=== PATIENT | female | born 1980 | race Hispanic/Latino ===

== ENCOUNTER 2020-09-27 01:15 | Inpatient (IN) | payer SELFPAY ==
[2020-09-27] MEDS ORDERED: Morphine 4 MG/ML VIAL ONE (01:42)
[2020-09-27] MEDS ORDERED: Ondansetron PF 4 MG/2 ML Vial ONE ×2 (01:43→10:01)
[2020-09-27 01:47] LABS: #Basophils 0.1 thou/uL (0.0-0.2); #Eosinphils 0.1 thou/uL (0.0-0.7); #Monocytes 0.8 thou/uL (0.11-0.59); #Neutrophils 8.5 thou/uL (1.40-6.50); %Basophils 0.7 % (0.0-1.0); %Eosinophils 1.2 % (0.0-10.0); %Lymphocytes 17.5 % (21.0-51.0); %Monocytes 6.7 % (0.0-10.0); Hemoglobin 12.1 g/dL (12.0-16.0); Mean Corpuscular HGB CONC 33.2 g/dL (32.0-36.0); Mean Corpuscular Hemoglobin 29.3 pg (27.0-31.0); Mean Corpuscular Volume 88.3 fL (78.0-98.0); Mean Platelet Volume 7.1 fL (7.4-10.4); Platelet Count 377 thou/uL (130-400); RBC Distribution Width 12.9 % (11.5-14.5); Red Blood Cell (RBC) Count 4.14 mill/uL (4.20-5.40); White Blood Cell (WBC) Count 11.5 thou/uL (4.8-10.8)
[2020-09-27 02:07] LABS: ALT (SGPT) 16 U/L (8-55); AST (SGOT) 22 U/L (5-34); Alkaline Phosphatase 68 U/L (40-110); Anion Gap 16 mmol/L (10-20); BUN (Urea Nitrogen) 14 mg/dL (7.0-18.7); Bilirubin, Total 0.5 mg/dL (0.2-1.2); Calc. Creatinine Clearance 0 mL/min (70-130); Calcium 8.8 mg/dL (7.8-10.44); Carbon Dioxide 18 mmol/L (22-29); Chloride 105 mmol/L (98-107); Estimated GFR-MDRD 74; Globulin 3.6 g/dL (2.4-3.5); Glucose 113 mg/dL (70-105); Lipase 21 U/L (8-78); Potassium 3.9 mmol/L (3.5-5.1); Protein, Total 7.6 g/dL (6.0-8.3); Sodium 135 mmol/L (136-145)
[2020-09-27 02:12] LABS: Pregnancy Test - Urine (BHCG) Negative (Negative)
[2020-09-27 02:15] LABS: Bacteria/HPF None Seen HPF (None Seen); Bilirubin Negative (Negative); Blood, Urine Negative (Negative); Clarity Clear (Clear); Glucose, Urine (Dipstick) Normal (Negative); Ketone, Urine Negative (Negative); Leukocyte 75 Leu/uL (Negative); Nitrite Negative (Negative); Pregu Control Background? CLEAR/WHITE (CLR/WHITE); Pregu Control Bar Appear? YES (CONTROL BAR); Protein, Urine (Dipstick) Negative (Neg-Trace); RBC/HPF 0-3 HPF (0-3); Specific Gravity 1.017 (1.002-1.036); Specific Gravity, Urine 1.017 (1.002-1.036); Urobilinogen Normal mg/dL (Less than 2); WBC/HPF 0-3 HPF (0-3); pH, Urine 8.5 (5.0-9.0)
[2020-09-27] MEDS ORDERED: Piperacillin/Tazobactam 4.5 GM VIAL ONE (03:07)
[2020-09-27] MEDS ORDERED: Morphine 4 MG/ML VIAL SLOW IVP PRN (05:53)
[2020-09-27 05:54] VITALS: BMI 33.3
[2020-09-27] MEDS ORDERED: Ondansetron ODT 4 MG TAB SL PRN (06:00)
[2020-09-27] MEDS ORDERED: Ondansetron PF 4 MG/2 ML Vial IVP PRN (06:00)
[2020-09-27 07:20] LABS: SARS-CoV-2 NAA Rapid Test Not Detected (NotDetected)
--- NOTE | 2020-09-27 08:06 | ULT ---
PRELIMINARY REPORT/[facility]/EMERGENCY AFTER HOURS PROCEDURE: Receipt of this report by the clinical staff was confirmed with JON MATHIS MD by Kelly Sanchez on Sep 27, 2020 02:35:00 CRYSTAL CUTTER. Addendum electronically signed by Noreen Sanchez on September 27, 2020 2:34:58 AM CRYSTAL CUTTER EXAM: US Abdomen Limited, Right Upper Quadrant. CLINICAL HISTORY: RUQ pain TECHNIQUE: Real-time ultrasound of the right upper quadrant with image documentation. COMPARISON: None provided. FINDINGS: LIVER: Measures 15 cm and demonstrates fatty infiltration. GALLBLADDER: Cholelithiasis is noted with gallbladder sludge and wall thickening is seen at 4.1 mm. The patient d emonstrated a positive sonographic Jimenez's sign and pericholecystic fluid is noted. COMMON BILE DUCT: Your prominent at 6.9 mm. PANCREAS: Mostly obscured by overlying bowel gas. RIGHT KIDNEY: Unremarkable. No hydronephrosis. Measures 9.6 cm IMPRESSION: The findings are consistent with acute cholecystitis ELECTRONICALLY SIGNED BY: Codey Vernon MD Sep 27, 2020 2:32:23 AM CRYSTAL CUTTER This report is intended for review by the ordering physician only, in accordance of law. If you recei ve this report in error, please call [facility] at [phone]. FINAL REPORT EMERGENT AFTER HOURS RIGHT UPPER QUADRANT ABDOMINAL ULTRASOUND: FINDINGS/IMPRESSION: I agree with the findings and impression given in the preliminary report per [facility] physici an. 1. There are gallstones and gallbladder wall thickening. A positive Jimenez's sign was reported by erica gregg technologist. These findings may be consistent with acute cholecystitis. Correlate with physical exam and LFTs. 2. Common bile duct is upper normal of normal in size. POS: EAA
[2020-09-27] MEDS: Sodium Chloride 0.9% 1,000 ML IV SCH ×2 (08:24→16:47)
[2020-09-27] MEDS ORDERED: FLU VACC QS2020-21(6MOS UP)/PF 60 MCG/0.5 ML SYRINGE IM ONE (09:00)
[2020-09-27] MEDS ORDERED: Piperacillin/Tazobactam 4.5 GM in Sodium Chloride 0.9% 100 ML IVPB SCH (09:00)
[2020-09-27] MEDS ORDERED: Bupivacaine 0.25% HCL 30 ML VIAL ONE (09:41)
[2020-09-27] MEDS ORDERED: Lidocaine 1% w/Epinephrine 1:100K 20 ML VIAL ONE (09:41)
[2020-09-27] MEDS ORDERED: Iothalamate Meglumine 60% 50 ML VIAL FS ONE (09:41)
[2020-09-27] MEDS ORDERED: Lidocaine 1% PF 5 ML VIAL ONE (10:01)
[2020-09-27] MEDS ORDERED: Rocuronium Bromide 10 MG/ML (10ML VIAL) ONE (10:01)
[2020-09-27] MEDS ORDERED: Ketorolac Tromethamine 30 MG/ML VIAL ONE (10:01)
[2020-09-27] MEDS ORDERED: PROPOFOL 200 MG/20 ML VIAL ONE (10:01)
[2020-09-27] MEDS ORDERED: Dexamethasone 20 MG/5 ML VIAL ONE (10:01)
[2020-09-27] MEDS ORDERED: Glycopyrrolate 0.2 MG/ML 5 ML SYRINGE ONE (10:01)
[2020-09-27] MEDS ORDERED: Fentanyl 100 MCG/2 ML VIAL ONE (10:32)
--- NOTE | 2020-09-27 10:38 | HP ---
CHIEF COMPLAINT: Right upper quadrant pain. HISTORY OF PRESENT ILLNESS: Ms. Kristopher Prince is a 39-year-old previously healthy woman who presented to the emergency room with a several-hour history of severe right upper quadrant pain, nausea, and vomiting. She states that she has had intermittent right upper quadrant pain after eating for the past 4 years, but has never been this severe. She was unable to control the pain at home, so she came to the emergency room. She denies any fevers, chills, jaundice, or icterus. No exacerbating or alleviating factors. She did not eat anything unusual before onset of the pain. She describes it as sharp and confined to the right upper quadrant. PAST MEDICAL HISTORY: None. PAST SURGICAL HISTORY: None. OUTPATIENT MEDICATIONS: None. ALLERGIES: NONE. FAMILY HISTORY: Hypertension in her father. REVIEW OF SYSTEMS: Ten-system review of systems is negative except per HPI. PHYSICAL EXAMINATION: VITAL SIGNS: The patient has been afebrile in the emergency room and since her admission, heart rate 76, respirations 18, 98% saturated on room air, and blood pressure 99/63. GENERAL: A healthy-appearing young woman, in no acute distress. No jaundice or icterus. Not flushed or toxic in appearance. HEENT: Unremarkable. Neck is supple without lymphadenopathy or thyroid nodules. Pupils are equal. Extraocular movements are intact. HEART: Regular in its rate and rhythm without murmurs, rubs, or gallops. LUNGS: Clear to auscultation bilaterally. She is able to take a deep breath without pain. ABDOMEN: Soft and nondistended without palpable masses or hernias. She has focal tenderness to palpation in the right upper quadrant, but otherwise nontender to palpation. She states that the pain is better since last night. EXTREMITIES: Warm and well perfused without edema. NEUROLOGIC: No focal deficits. PSYCHIATRIC: Alert, oriented, and conversing appropriately using a [place]oese aerial photograph interpreter. LABORATORY DATA: White count is elevated at 11.5 with a neutrophil differential in the high normal. Electrolytes are unremarkable. Bicarb is a little low at 18, sodium is a little low at 135, glucose is slightly elevated at 113. LFTs are normal and lipase is normal. Urine is contaminated with 7 to 10 squamous epithelial cells, but is otherwise unremarkable. COVID serology is negative. Ultrasound of the abdomen shows gallstones in the gallbladder with gallbladder wall thickening and pericholecystic fluid, consistent with acute cholecystitis. Her common bile duct is prominent for her age. ASSESSMENT: Cholelithiasis and cholecystitis, acute on chronic, possible choledocholithiasis given prominent common bile duct, but somewhat less likely given normal liver function tests. I recommended laparoscopic cholecystectomy with intraoperative cholangiogram. Inherent risks of the surgery were discussed with the patient. These include, but are not limited to, bleeding, infection, risks of anesthesia, damage to nearby structures including bowel, liver, and bile duct, need for other procedures such as ERCP, and need for open surgery. She understands and accepts these risks and wishes to proceed. All of her questions were answered. She is on scheduled Zosyn since her admission to the hospital. Job ID: [id number]
[2020-09-27] MEDS ORDERED: Morphine Sulfate 2 MG/ML SYRINGE SLOW IVP PRN (11:05)
[2020-09-27] MEDS ORDERED: Ondansetron HCl/PF 4 MG/2 ML Vial IVP PRN (11:05)
[2020-09-27] MEDS ORDERED: Meperidine HCl/PF 25 MG/ML VIAL SLOW IVP PRN (11:05)
[2020-09-27] MEDS ORDERED: Ketorolac Tromethamine 30 MG/ML VIAL IVP PRN (11:05)
[2020-09-27] MEDS ORDERED: Promethazine HCl 25 MG/ML VIAL IM PRN (11:05)
[2020-09-27] MEDS ORDERED: PACU-Morphine 4MG/ML VIAL SLOW IVP PRN (11:05)
[2020-09-27] MEDS ORDERED: Promethazine HCl 25 MG/ML VIAL SLOW IVP PRN (11:05)
[2020-09-27] MEDS ORDERED: HYDROmorphone 2 MG/ML VIAL SLOW IVP PRN (11:05)
[2020-09-27] MEDS ORDERED: HYDROmorphone 2 MG/ML VIAL ONE (11:40)
--- NOTE | 2020-09-27 13:40 | PDOC.OP ---
Operative Note - Operative Note Operative Note: DATE OF PROCEDURE: 09/27/2020 PROCEDURES: Laparoscopic cholecystectomy with intraoperative cholangiogram. SURGEON: Mariya Guerra M.D. PREOPERATIVE DIAGNOSIS: Cholelithiasis and cholecystitis with possible choledocholithiasis POSTOPERATIVE DIAGNOSIS: Cholelithiasis and cholecystitis FINDINGS: Very distended gallbladder with thick bile sludge and multiple stones. Large stone impacted in the neck with edema at the level of the neck of the gallbladder. Sludge in the cystic duct but no filling defects or obstruction to flow on cholangiogram. HISTORY: Patient with signs and symptoms of biliary colic. Laparoscopic cholecystectomy was recommended for symptomatic relief and prevention of future episodes. Intraoperative cholangiogram was also recommended. PROCEDURE: After informed consent was obtained and appropriate preoperative antibiotics were administered, the patient was taken to the operating room and placed in the supine position and general endotracheal anesthesia was administered. The stomach was decompressed with an OG tube and the abdomen was prepped and draped in standard sterile fashion. Local anesthesia was infused to the skin and subcutaneous tissues at the umbilical level. A transverse skin incision was made. The fascia was elevated and a Veress needle was placed into the abdominal cavity without difficulty. Opening pressure was less than 5 and carbon dioxide gas easily insufflated to an intra-abdominal pressure of 15, which the patient tolerated well. The Veress needle was withdrawn and a [place] port advanced under direct vision. The abdominal cavity was carefully examined. There was no evidence of Veress needle or of trocar injury. Local anesthesia was infused to the skin and subcutaneous tissues at the epigastric, right upper quadrant, and right lateral abdominal sites and trocars were placed under direct vision of the laparoscope. The fundus of the gallbladder was too taut to grasp. The gallbladder was aspirated with removal of about 20 mL of very thick mucousy bile following which the fundus was able to be grasped and retracted superiorly. Omental adhesions were taken down through the avascular plane. These adhesions appeared to be chronic. The infundibulum was exposed, grasped and retracted laterally. The serosa was stripped inferiorly at the level of the neck of the gallbladder exposing the cystic duct and artery which were traced clearly to their insertion in the gallbladder. These were dissected free circumferentially and the cystic duct was clipped at the level of the neck of the gallbladder. The cystic artery was clipped but not divided. An incision was made in the cystic duct inferior to the clip and the cystic duct was palpated with no stones palpable but some sludge extruded from the cystic duct following which there was flow of clear bile. A cholangiogram catheter was introduced and placed into the cystic duct and secured with a clip. A cholangiogram was obtained which showed an adequate length of cystic duct. There was normal filling of the common bile duct with free flow of contrast into the duodenum. There was normal retrograde flow into the common hepatic duct beyond the level of the bifurcation without filling defects. The cholangiogram catheter was removed and the cystic duct clipped below the incision in the cystic duct. The cystic duct was divided between these clips and the previously placed clip. The cystic artery was clipped and divided between the previously placed clips. A small branch of the cystic artery going to the posterior portion of the gallbladder was exposed after the cystic artery was divided. This was clipped and divided as well. The gallbladder was then dissected free of the gallbladder bed using hook electrocautery. Prior to complete removal of the gallbladder from the gallbladder bed, the area of the cystic duct and artery stumps was examined. The clips were in good position completely across these structures and there was no bleeding and no leakage of bile. The gallbladder was then placed into an EndoCatch bag and drawn out through the epigastric incision after crushing and removing multiple stones. The epigastric trocar was replaced and the operative site easily irrigated to clear. There was no significant bleeding or spillage of bile. The epigastric trocar was removed and the fascia closed under direct laparoscopic vision with a 0 Vicryl suture on a GraNee needle in a [id number] manner with excellent technical result. The right upper quadrant and right lateral abdominal trocars were removed and hemostasis verified. Carbon dioxide gas was allowed to desufflate through the umbilical trocar which was then removed. The skin incisions were closed with 4-0 subcuticular Monocryl sutures and Dermabond dressings were placed. The patient was extubated and taken to the recovery room in good condition. There were no complications. ESTIMATED BLOOD LOSS: Minimal. SPECIMEN : Gallbladder and contents.
[2020-09-27] MEDS ORDERED: traMADol HCl 50 MG TAB PO PRN ×2 (13:48→13:49)
[2020-09-27] MEDS ORDERED: HYDROcodone/Acetaminophen 5/325 mg Tablet PO PRN ×2 (13:49→13:50)
[2020-09-27] MEDS ORDERED: Acetaminophen 325 MG TAB PO PRN ×2 (13:50)
[2020-09-27] MEDS ORDERED: Ibuprofen 200 MG TAB PO PRN ×3 (13:51→13:52)
[2020-09-27] MEDS ORDERED: Promethazine 25 MG TAB PO PRN (13:52)
[2020-09-27] MEDS ORDERED: Morphine 2 MG/ML VIAL SLOW IVP PRN (13:53)
--- NOTE | 2020-09-27 14:29 | RAD ---
EXAM: INTRAOPERATIVE CHOLANGIOGRAM: 09/27/20 HISTORY: Right upper quadrant pain, gallstones. FINDINGS: Two portable fluoroscopic spot images are presented for interpretation. There is injection of contras t through the cystic duct. Common bile duct and common hepatic duct are upper range of normal size. T here is some slight narrowing of the distal common duct without evidence for retained calculus. Porti ons of the right and left intrahepatic ducts are not demonstrated. Minimal reflux into a nondilated p ancreatic duct. IMPRESSION: No evidence for overt intraductal calculus. Slight narrowing at the distal common duct/ampulla region . POS: RRE
[2020-09-27 16:45] VITALS: BP 127/70; TEMP 98
== END 2020-09-27 19:00 | disposition home or self-care (01) | DRG 419 ==
LOC: ERS 01:15 → SURG A 02:59
PROVIDERS: ADMIT Surgery; ATTEND Surgery
PROC: 0FT44ZZ Resection of Gallbladder, Percutaneous Endoscopic Approach (ICD-10-PCS; principal; 2020-09-27)
PROC: BF101ZZ Fluoroscopy of Bile Ducts using Low Osmolar Contrast (ICD-10-PCS; 2020-09-27)
DX: K80.12 Calculus of gallbladder with acute and chronic cholecystitis without obstruction (principal); Z20.828 Contact with and (suspected) exposure to other viral communicable diseases
CPT/HCPCS: 47532; 76705; 80053; 81003; 81015; 81025; 83690; 85025; 88304; 90471; 90662; 96365; 96375; G0008; J1100; J1170; J1885; J2270; J2405; J2543; J2704; J3010; J3490; S0020; U0002

== ENCOUNTER 2022-04-01 15:24 | Emergency (ER) | payer SELFPAY ==
[2022-04-01] MEDS ORDERED: Acetaminophen 325 MG TAB ONE (16:15)
[2022-04-01 16:18] LABS: Clarity Clear (Clear); Leukocyte 75 Leu/uL (Negative); Specific Gravity, Urine 1.006 (1.002-1.036); pH, Urine 6.5 (5.0-9.0)
[2022-04-01 16:19] LABS: Bacteria/HPF 1+ HPF (None Seen); Bilirubin Negative (Negative); Blood, Urine Negative (Negative); Glucose, Urine (Dipstick) Normal (Negative); Ketone, Urine Negative (Negative); Nitrite Negative (Negative); Protein, Urine (Dipstick) Negative (Neg-Trace); RBC/HPF 0-3 HPF (0-3); Urobilinogen Normal mg/dL (Less than 2); WBC/HPF 0-3 HPF (0-3)
[2022-04-01] MEDS ORDERED: Metoclopramide HCl 10 MG/2 ML VIAL ONE (16:29)
[2022-04-01 16:36] LABS: #Lymphocytes 1.2 thou/uL (1.20-3.40); #Monocytes 0.5 thou/uL (0.11-0.59); #Neutrophils 5.6 thou/uL (1.40-6.50); %Basophils 0.1 % (0.0-1.0); %Eosinophils 0.3 % (0.0-10.0); %Lymphocytes 16.4 % (21.0-51.0); %Neutrophils 76.1 % (42.0-75.0); Hemoglobin 10.7 g/dL (12.0-16.0); Mean Corpuscular HGB CONC 32.6 g/dL (32.0-36.0); Mean Corpuscular Hemoglobin 27.4 pg (27.0-31.0); Mean Platelet Volume 6.6 fL (7.4-10.4); Platelet Count 380 thou/uL (130-400); RBC Distribution Width 13.5 % (11.5-14.5); White Blood Cell (WBC) Count 7.4 thou/uL (4.8-10.8)
[2022-04-01 17:04] LABS: ALT (SGPT) 15 U/L (8-55); AST (SGOT) 19 U/L (5-34); Albumin 3.3 g/dL (3.5-5.0); Alkaline Phosphatase 114 U/L (40-110); Anion Gap 12 mmol/L (10-20); BUN (Urea Nitrogen) 4 mg/dL (7.0-18.7); Bilirubin, Total 0.5 mg/dL (0.2-1.2); Calc. Creatinine Clearance 0 mL/min (70-130); Calcium 8.9 mg/dL (7.8-10.44); Carbon Dioxide 21 mmol/L (22-29); Chloride 104 mmol/L (98-107); Globulin 3.5 g/dL (2.4-3.5); Glucose 77 mg/dL (70-105); Lipase 19 U/L (8-78); Protein, Total 6.8 g/dL (6.0-8.3); Sodium 134 mmol/L (136-145)
[2022-04-01] MEDS ORDERED: Potassium Chloride 20 MEQ TAB ONE (17:20)
[2022-04-01] MEDS ORDERED: Potassium Bicarbonate/Cit Ac 25 MEQ TAB ONE (17:22)
== END 2022-04-01 18:50 | disposition home or self-care (01) ==
LOC: ERS 15:24
DX: O21.9 Vomiting of pregnancy, unspecified (principal); O23.13 Infections of bladder in pregnancy, third trimester; N30.00 Acute cystitis without hematuria; O99.283 Endocrine, nutritional and metabolic diseases complicating pregnancy, third trimester; E87.6 Hypokalemia; Z3A.30 30 weeks gestation of pregnancy
CPT/HCPCS: 36415; 76815; 80053; 81003; 81015; 83690; 84702; 85025; 86900; 86901; 87086; 94760; 96361; 96374; J2765

== ENCOUNTER 2022-05-24 03:29 | Emergency (ER) | payer SELFPAY | END 2022-05-24 04:43 | disposition short-term general hospital (02) | LOC: ERS 03:29 | DX: O47.1 False labor at or after 37 completed weeks of gestation (principal); O42.92 Full-term premature rupture of membranes, unspecified as to length of time between rupture and onset of labor; Z3A.37 37 weeks gestation of pregnancy | CPT/HCPCS: 99284 ==